=== PATIENT | male | born 1950 | race African-American/Black ===

== ENCOUNTER 2018-07-31 14:02 | Emergency (ER) | payer OTHER ==
[~2018-07-31] VITALS: Ht 177.8 cm; Wt 90.0 kg
[2018-07-31] MEDS ORDERED: SODIUM CHLORIDE 0.9% 1,000 ML IV ONE (14:46)
[2018-07-31 15:39] LABS: BASOPHILS % 0.8 % (0.0-2.0); EOSINOPHILS % 3.2 % (0.0-5.0); HEMATOCRIT. 38.5 % (42.0-52.0); HEMOGLOBIN. 13.1 g/dL (14.0-18.0); LYMPHOCYTES % 25.6 % (20.0-50.0); MEAN CORPUSCULAR HEMOGLOBIN 31.2 pg (28.0-32.0); MEAN CORPUSCULAR VOLUME 91.9 fL (80.0-94.0); MEAN PLATELET VOLUME 8.7 fl (7.4-10.4); MONOCYTES % 7.2 % (2.0-8.0); NEUTROPHILS % 63.2 % (40.0-76.0); PLATELET 207 x1000/uL (130-400); RED BLOOD CELL COUNT 4.19 mill/uL (4.7-6.1); RED CELL DISTRIBUTION WIDTH 15.1 % (11.6-14.6)
[2018-07-31 15:45] LABS: CHLORIDE 108 mEq/L (98-107)
[2018-07-31 15:46] LABS: PROTHROMBIN TIME 10.4 sec (9.1-11.1)
[2018-07-31 15:49] LABS: ETHANOL BLOOD 21 mg/dL
[2018-07-31 17:10] VITALS: BP 138/78
== END 2018-07-31 17:15 | disposition home or self-care (01) ==
LOC: ER 14:54
DX: R42 Dizziness and giddiness (principal); F10.99 Alcohol use, unspecified with unspecified alcohol-induced disorder; Y90.1 Blood alcohol level of 20-39 mg/100 ml; F17.210 Nicotine dependence, cigarettes, uncomplicated; I10 Essential (primary) hypertension
CPT/HCPCS: 36415; 70450; 71045; 80053; 80320; 84484; 85025; 85610; 93005; 96360; 96361; 99284; J7030; G0480